=== PATIENT | female | born 1975 | race Caucasian/White ===

== ENCOUNTER 2022-04-22 16:26 | Outpatient (CLI) | payer BC, SELFPAY ==
--- NOTE | 2022-04-22 16:45 | CRLHL7_ITS ---
For Patients: As a result of the Century Cures Act, medical imaging exams and procedure reports are released immediately into your electronic medical record. You may view this report before your referring provider. If you have questions, please contact your health care provider. BILATERAL SCREENING MAMMOGRAM WITH COMPUTER-AIDED DETECTION AND TOMOSYNTHESIS TECHNIQUE: CC and MLO views were obtained. These mammographic images have been obtained using full-field digital technique. These mammographic images were interpreted with the benefit of computer-aided detection. Breast Tomosynthesis was used in this interpretation. COMPARISON FILM: 11/07/20,06/14/20, 02/21/16. FINDINGS: The breasts are heterogeneously dense, which may obscure small masses IMPRESSION: There is no radiographic evidence for malignancy. ASSESSMENT: BI-RADS Category 1: Negative RECOMMENDATION: Routine screening mammogram in 1 year. A lay language report of this examination will be provided to the patient. Walker Stephens M.D. Diagnostic/Nuclear Medicine Radiologist [email or web address] ALECIA/Dictated by: Walker Stephens MD @ 04/23/2022 8:54:00 AM (Electronically Signed)
== END 2022-04-22 16:27 | disposition home or self-care (01) ==
LOC: MAMMO 16:27
PROVIDERS: PCP Surgery; Visit Provider Surgery
DX: Z12.31 Encounter for screening mammogram for malignant neoplasm of breast (principal); R92.2 Inconclusive mammogram
CPT/HCPCS: 77063; 77067

== ENCOUNTER 2023-12-31 09:15 | Outpatient (CLI) | payer BC, SELFPAY ==
[2024-01-01 17:53] LABS: HPV Source Cervix; HPV, High Risk by TMA Not Detected
== END 2023-12-31 09:16 | disposition home or self-care (01) ==
PROVIDERS: PCP Surgery; Visit Provider Physician Assistant
DX: Z12.4 Encounter for screening for malignant neoplasm of cervix (principal); Z13.220 Encounter for screening for lipoid disorders; Z13.1 Encounter for screening for diabetes mellitus
CPT/HCPCS: 80061; 82947; 87624; 87625; 88141; 88142

== ENCOUNTER 2024-04-26 14:44 | Outpatient (CLI) | payer BC, SELFPAY ==
--- NOTE | 2024-04-26 15:00 | CRLHL7_ITS ---
For Patients: As a result of the Century Cures Act, medical imaging exams and procedure reports are released immediately into your electronic medical record. You may view this report before your referring provider. If you have questions, please contact your health care provider. BILATERAL SCREENING MAMMOGRAM WITH COMPUTER-AIDED DETECTION AND TOMOSYNTHESIS TECHNIQUE: CC and MLO views were obtained. These mammographic images have been obtained using full-field digital technique. These mammographic images were interpreted with the benefit of computer-aided detection. Breast Tomosynthesis was used in this interpretation. COMPARISON FILM: 04/22/22, 11/07/20, 06/14/20. FINDINGS: The breasts are heterogeneously dense, which may obscure small masses. IMPRESSION: There is no radiographic evidence for malignancy. ASSESSMENT: BI-RADS Category 1: Negative RECOMMENDATION: Routine screening mammogram in 1 year. A lay language report of this examination will be provided to the patient. Axel Grullon M.D. Diagnostic Radiologist [email or web address] SP/Dictated by: Axel Grullon MD @ 04/27/2024 9:24:00 AM (Electronically Signed)
== END 2024-04-26 14:45 | disposition home or self-care (01) ==
LOC: MAMMO 14:46
PROVIDERS: Visit Provider Physician Assistant
DX: Z12.31 Encounter for screening mammogram for malignant neoplasm of breast (principal); R92.333 Mammographic heterogeneous density, bilateral breasts
CPT/HCPCS: 77063; 77067